=== PATIENT | female | born 1965 | race Hispanic/Latino ===

== ENCOUNTER 2022-02-19 07:09 | Emergency (ER) | payer OTHER ==
[~2022-02-19] VITALS: Ht 157.5 cm; Wt 56.7 kg
[2022-02-19] MEDS: FAMOTIDINE 20MG TAB PO ONE (07:49)
[2022-02-19] MEDS: IBUPROFEN 800 MG TAB PO ONE (07:49)
[2022-02-19] MEDS: AMOX/CLAV 875/125MG TAB PO ONE (07:49)
[2022-02-19] MEDS ORDERED: IBUP-1493 PO (07:58)
[2022-02-19] MEDS ORDERED: AMOX-427 PO (07:58)
[2022-02-19] MEDS: DIPH,PERTUSS(ACELL),TET VAC/PF 0.5 ML VIAL IM SCH (08:05)
[2022-02-19 08:33] VITALS: BP 125/76
== END 2022-02-19 08:33 | disposition home or self-care (01) ==
LOC: EDH 07:09
DX: S71.151A Open bite, right thigh, initial encounter (principal); S90.31XA Contusion of right foot, initial encounter; Z79.1 Long term (current) use of non-steroidal anti-inflammatories (NSAID); W54.0XXA Bitten by dog, initial encounter; Y93.89 Activity, other specified; Y92.89 Other specified places as the place of occurrence of the external cause; Y99.8 Other external cause status
CPT/HCPCS: 73620; 90471; 90715